=== PATIENT | male | born 1970 | race Caucasian/White ===

== ENCOUNTER 2021-06-28 06:13 | Outpatient (REF) | payer OTHER, SELFPAY ==
[2021-06-28 11:23] LABS: MANUAL DIFF FLAG NO
[2021-06-28 11:35] LABS: Basophils Absolute Auto 0.1 X10*3/uL (0.0-0.2); Basophils Percent Auto 1.1 % (0-2); Eosinophils Absolute Auto 0.1 X10*3/uL (0.0-0.4); Eosinophils Percent Auto 1.6 % (0-4); Hematocrit 45.3 % (42.0-52.0); Hemoglobin 15.1 g/dl (14.0-18.0); Imm Gran Abs Auto 0.02 X10*3/uL (0.00-0.03); Imm Gran Pct Auto 0.3 % (0.0-0.4); Lymphocytes Absolute Auto 1.7 X10*3/uL (1.2-4.9); Lymphocytes Percent Auto 26.5 % (20-40); Mean Corpuscular HGB Conc 33.3 g/dl (31.0-36.0); Mean Corpuscular Hemoglobin 28.7 pg (27.0-33.0); Monocytes Absolute Auto 0.8 X10*3/uL (0.1-1.2); Monocytes Percent Auto 12.1 % (2-11); Neutrophils Absolute Auto 3.7 x10*3/uL (2.0-8.3); Neutrophils Percent Auto 58.4 % (45-73); Platelet Count 254 X10*3/uL (160-400); Red Blood Count 5.27 X10*6/uL (4.60-5.80); Red Cell Distribution Width 12.3 % (11.0-16.0); White Blood Count 6.3 X10*3/uL (4.8-10.8)
[2021-06-28 11:48] LABS: Appearance Urine CLEAR; Color Urine YELLOW; Glucose Urine UA NEG (NEG); Leukocyte Esterase Urine NEG (NEG); Nitrite Urine NEG (NEG); Urine Blood NEG (NEG); Urine Ketones NEG (NEG); Urine Protein NEG (NEG-TRACE)
[2021-06-28 12:00] LABS: Alanine Aminotransferase 15 U/L (0-40); Albumin Level 4.5 g/dL (3.5-5.0); Alkaline Phosphatase 72 U/L (39-117); Anion Gap 14 (12-20); Aspartate Amino Transferase 13 U/L (5-37); Blood Urea Nitrogen 18 mg/dL (9-16); Calcium 9.1 mg/dL (8.4-10.2); Carbon Dioxide 25 mmol/L (22-29); Chloride 105 mmol/L (96-108); Cholesterol 193 mg/dL; Estimated Glomerular Filt Rate > 60; Glucose Fasting 83 mg/dL (60-99); HDL Cholesterol 39 mg/dL; LDL Cholesterol Calculated 139 mg/dl; Potassium 3.9 mmol/L (3.3-5.1); Sodium 140 mmol/L (135-145); Total Protein 6.7 g/dL (6.5-8.0); Triglycerides 77 mg/dL
[2021-06-28 12:22] LABS: Prostate Specific Antigen Scr 0.62 ng/mL (<0.05-4.0); TSH reflex Free T4 1.41 uIU/mL (0.32-4.0); Vitamin D 25-OH Total 13.9 ng/mL (>30)
== END 2021-06-28 06:14 | disposition home or self-care (01) ==
LOC: HO.HMGCLDS 06:13
PROVIDERS: PCP Internal Medicine; Visit Provider Internal Medicine
DX: Z00.00 Encounter for general adult medical examination without abnormal findings (principal); Z12.5 Encounter for screening for malignant neoplasm of prostate; E78.00 Pure hypercholesterolemia, unspecified; E55.9 Vitamin D deficiency, unspecified
CPT/HCPCS: 36415; 80053; 80061; 81003; 82306; 84153; 84443; 85025

== ENCOUNTER 2022-08-05 11:20 | Outpatient (REF) | payer OTHER, SELFPAY ==
[2022-08-05 13:59] LABS: Appearance Urine Clear; Color Urine Yellow; Glucose Urine UA Negative (Negative); Leukocyte Esterase Urine Negative (Negative); Nitrite Urine Negative (Negative); PH 5.5 (5.0-9.0); Urine Blood Negative (Negative); Urine Ketones Negative (Negative); Urine Protein Negative (Neg-Trace)
[2022-08-05 14:09] LABS: MANUAL DIFF FLAG NO
[2022-08-05 14:17] LABS: Basophils Absolute Auto 0.1 X10*3/uL (0.0-0.2); Eosinophils Percent Auto 0.3 % (0-4); Hematocrit 46.8 % (42.0-52.0); Hemoglobin 15.8 g/dl (14.0-18.0); Imm Gran Abs Auto 0.04 X10*3/uL (0.00-0.03); Imm Gran Pct Auto 0.5 % (0.0-0.4); Lymphocytes Absolute Auto 1.5 X10*3/uL (1.2-4.9); Lymphocytes Percent Auto 17.3 % (20-40); Mean Corpuscular HGB Conc 33.8 g/dl (31.0-36.0); Mean Corpuscular Hemoglobin 28.8 pg (27.0-33.0); Mean Corpuscular Volume 85.2 fL (80.0-98.0); Mean Platelet Volume 9.8 fL (9.4-12.4); Monocytes Absolute Auto 0.6 X10*3/uL (0.1-1.2); Monocytes Percent Auto 7.3 % (2-11); Neutrophils Absolute Auto 6.5 x10*3/uL (2.0-8.3); Neutrophils Percent Auto 73.6 % (45-73); Platelet Count 284 X10*3/uL (160-400); Red Blood Count 5.49 X10*6/uL (4.60-5.80); Red Cell Distribution Width 12.6 % (11.0-16.0); White Blood Count 8.8 X10*3/uL (4.8-10.8)
[2022-08-05 16:21] LABS: Alanine Aminotransferase 13 U/L (0-40); Albumin Level 4.6 g/dL (3.5-5.0); Alkaline Phosphatase 74 U/L (39-117); Anion Gap 15 (12-20); Aspartate Amino Transferase 12 U/L (5-37); Bilirubin Total 1.1 mg/dL (0.0-1.0); Blood Urea Nitrogen 15 mg/dL (9-16); Calcium 9.8 mg/dL (8.4-10.2); Carbon Dioxide 27 mmol/L (22-29); Chloride 104 mmol/L (96-108); Cholesterol 206 mg/dL; Estimated Glomerular Filt Rate > 60; Glucose Fasting 113 mg/dL (60-99); HDL Cholesterol 36 mg/dL; LDL Cholesterol Calculated 152 mg/dl; Potassium 4.5 mmol/L (3.3-5.1); Prostate Specific Antigen Scr 0.99 ng/mL (<0.05-4.0); Sodium 141 mmol/L (135-145); TSH reflex Free T4 0.73 uIU/mL (0.32-4.0); Total Protein 6.7 g/dL (6.5-8.0); Triglycerides 90 mg/dL; Vitamin D 25-OH Total 14.2 ng/mL (>30)
== END 2022-08-05 11:21 | disposition home or self-care (01) ==
LOC: HO.HMGCLDS 11:20
PROVIDERS: PCP Internal Medicine; Visit Provider Internal Medicine
DX: Z00.00 Encounter for general adult medical examination without abnormal findings (principal); Z12.5 Encounter for screening for malignant neoplasm of prostate; E78.00 Pure hypercholesterolemia, unspecified; E55.9 Vitamin D deficiency, unspecified; R30.0 Dysuria
CPT/HCPCS: 36415; 80053; 80061; 81003; 82306; 84153; 84443; 85025

== ENCOUNTER 2023-06-15 17:23 | Outpatient (AMB) | payer OTHER, SELFPAY ==
--- NOTE | 2023-06-15 17:25 | MHC.PC.OV ---
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: No Accompanied by: Self / Same As Patient Allergies penicillin G [Penicillin G] Allergy (Mild, Verified 06/15/23 17:42) ANAPHYLAXIS penicillin V Allergy (Unknown, Verified 06/15/23 17:42) anaphylaxis Medication List - Last Reconciled 06/15/23 by Dario Shaikh MD No Known Home Meds Tobacco use date assessed: 06/15/23 Dental Screening Dental Screen Date: 06/15/23 Did you have a dental visit in the last 12 months?: Yes Did you have a dental problem in the last 6 months where you did not have access to dental care?: No Was dental information given to patient?: Patient has dentist HPI PE HPI Details Patient comes in today for his annual physical examination States that he feels okay He denies any headaches or dizziness Denies any chest pains, no SOB No nausea/vomiting, no abdominal pain No change in bowel habits noted Denies any acute urinary symptoms Would like to know how he did on his labs done back in July 2022 after his last physical exam He is not yet due for his repeat colonoscopy - due in 2028 [facility] [place] Medical History (Updated 06/15/23 @ 19:28 by Dario Shaikh MD) Vitamin D deficiency Pure hypercholesterolemia Surgical History H/O colonoscopy (~01/12/19) History of hernia surgery Hx of adenoidectomy History of appendectomy Hx of tonsillectomy H/O right knee surgery Family History Father No problems noted. Mother Lyme disease Social History Housing: House Alcohol intake: current Alcohol intake frequency: holidays/special occasions only Patient Tobacco Use Status: Never used Tobacco e-Cigarette/Vaping Use: Never Used Second Hand Smoke Exposure: No service: No Current occupational status: employed Cognitive needs: No Hearing needs: No Vision needs: Yes Questionnaire PHQ-9 Over the last 2 weeks, how often have you been bothered by any of the following problems? 1. Little interest or pleasure in doing things: not at all 2. Feeling down, depressed, or hopeless: not at all 3. Trouble falling or staying asleep, or sleeping too much: not at all 4. Feeling tired or having little energy: not at all 5. Poor appetite or overeating: not at all 6. Feeling bad about yourself - or that you are a failure or have let yourself or your family down: not at all 7. Trouble concentrating on things, such as reading the newspaper or watching television: not at all 8. Moving or speaking so slowly that other people could have noticed. Or the opposite - being so fidgety or restless that you have been moving around a lot more than usual: not at all 9. Thoughts that you would be better off or of hurting yourself in some way: not at all Total score: 0 Depression Screening Interpretation: Negative Depression Screening Done: Yes 13997 - PHQ-9 Billing: Yes Source: Developed by Drs. Jose Maunel Quintanilla, Marcy Iverson, Winston Vergara and colleagues, with an educational isma from [employer]. Thrive Questionnaire Date Thrive assessed: 06/15/23 I am a: Patient What is your living situation today?: I have a steady place to live Within the past 12 months, did the food you bought not last and you didn't have the money to get more?: Never true Within the past 12 months, did you worry whether your food would run out before you got money to buy more?: Never true Do you have trouble paying for medicines?: No Do you have trouble getting transportation to medical appointments?: No Do you have trouble paying your heating and electricity bill?: No Do you have trouble taking care of your child, family member or friend?: No Do you have trouble with day-to-day activities such as bathing, preparing meals, shopping, managing finances, etc.?: No Are you currently unemployed and looking for a job?: No Are you interested in more education?: No Please select the resources that you would like help with: None Currently or been in a relationship where the following occur: no concerns reported AUDIT C Alcohol Use Questionnaire (AUDIT-C) 1. How often do you have a drink containing alcohol?: Monthly or less 2. How many drinks containing alcohol do you have on a typical day when you are drinking?: 1 or 2 3. How often do you have six or more drinks on one occasion?: Never Total Score: 1 Score Reviewed/Action Taken: Yes LUCERO-7 AMB Questionnaire LUCERO-7 Date LUCERO - 7 assessed: 06/15/23 Feeling nervous, anxious, or on edge: 0 = Not at all Not being able to stop or control worryin = Not at all Worrying too much about different things: 0 = Not at all Trouble relaxin = Not at all Being so restless that it is hard to sit still: 0 = Not at all Becoming easily annoyed or irritable: 0 = Not at all Feeling afraid as if something awful might happen: 0 = Not at all Total LUCERO-7 score (0-4 normal; 5-9 mild; 10-14 moderate; 15-21 severe): 0 Source: Developed by Drs. Jose Manuel Quintanilla, Marcy Iverson, Winston Vergara and colleagues, with an educational isma from [employer]. Review of Systems Const Denies chills, Denies fatigue, Denies fever(s), Denies headache(s), Denies malaise and Denies weakness Eyes Denies blurry vision, Denies change in vision, Denies irritation and Denies itchy eyes ENT Denies dysphagia, Denies dizziness, Denies otalgia, Denies headache(s), Denies nasal congestion, Denies neck pain, Denies odynophagia and Denies sore throat Card Denies chest pain, Denies rapid heart rate, Denies irregular heart rhythm, Denies palpitations and Denies dyspnea Resp Denies chest congestion, Denies cough, Denies dyspnea and Denies wheezing GI Denies abdominal pain, Denies bloating, Denies constipation, Denies dysphagia, Denies heartburn, Denies diarrhea, Denies nausea, Denies odynophagia and Denies vomiting Denies hematuria, Denies difficulty urinating, Denies dysuria, Denies urinary frequency and Denies urinary urgency Musc Denies back pain, Denies arthralgias, Denies joint swelling, Denies muscle weakness and Denies neck pain Skin/Breast Denies change in pigmentation, Denies lesions, Denies rash and Denies unusual bruising Neuro Denies dizziness, Denies headache(s), Denies paresthesias and Denies weakness Endo Denies fatigue and Denies palpitations Aller/Immun Denies itchy eyes and Denies wheezing Physical exam (Primary Care) Vital Signs: Last Vital Signs Pulse 60 06/15/23 17:26 BP 120/76 06/15/23 17:26 Pulse Ox 98 06/15/23 17:26 Oxygen Delivery Method Room Air 06/15/23 17:26 BMI result Body Mass Index 22.9 Tobacco/Smoking Status: Tobacco use Status Tobacco use date assessed 06/15/23 06/15/23 17:30 Patient Tobacco Use Status Never used Tobacco 06/15/23 17:30 e-Cigarette/Vaping Use Never Used 06/15/23 17:30 PHQ-9: PHQ-9 Score PHQ-9: Total score 0 06/15/23 17:43 Depression Screening Interpretation: Negative Thrive Assessment: Date of Thrive Assessment Date Thrive assessed 06/15/23 06/15/23 17:30 Currently or been in a relationship where the following occur: no concerns reported Const General: no acute distress, alert and awake Orientation/consciousness: patient oriented x3 HENMT Head: Yes normocephalic and Yes atraumatic Ears: external ears normal, TM's normal bilaterally and EAC's normal General nose exam: No nasal discharge present Face and sinus: Yes normal facial exam and Yes sinuses nontender Teeth and gingiva: dentition normal Throat: Yes posterior oropharynx normal and Yes tonsils normal (no TP congestion) Eyes Eyelids: Yes eyelids normal Conjunctivae: conjunctivae normal Pupils: Equal, round and reactive pupils present EOM: EOMs intact bilaterally Neck Neck: Yes no lymphadenopathy and Yes supple Thyroid: Thyroid normal Resp Auscultation: clear to auscultation bilaterally, no rales and no wheezes Cardio Rate: regular rate Rhythm: regular rhythm Heart sounds: no murmurs GI Palpation (GI): Soft to palpation, nontender and No hepatosplenomegaly present Auscultation: normal bowel sounds General: Yes no CVA tenderness Back/Spine/Pelvis Back: no CVA tenderness Thoracic/Lumbar Spine: thoracic and lumbar spine normal to inspection Skin Lesions: no lesions Rashes: no rashes Neuro General: patient oriented x3, moves all extremities, no focal motor deficits and CN's II-XI intact bilaterally Cranial nerves: Yes Equal, round and reactive pupils present Cognition (Neuro): normal cognition Gait exam (Neuro): Normal gait present Extrem General: Yes no clubbing, cyanosis or edema Results Reviewed Results Reviewed: Laboratory Tests 06/28/21 08/05/22 08/05/22 06:20 11:30 11:30 Triglycerides 77 Cholesterol 193 206 LDL Cholesterol, Calc 139 152 HDL Cholesterol 39 36 25-OH Vitamin D Total 14.2 Laboratory Tests 06/28/21 08/05/22 06:20 11:30 Fasting Glucose 113 H Triglycerides 77 Laboratory Tests 08/05/22 11:30 Triglycerides 90 Assessment and Plan Assessment & Plan (1) Annual physical exam: Code(s): Z00.00 - Encounter for general adult medical examination without abnormal findings Plan: Check labs He is up-to-date on his colon cancer screening - is not due for repeat colonoscopy until 2028 (2) Pure hypercholesterolemia: Code(s): E78.00 - Pure hypercholesterolemia, unspecified Plan: He is advised that his cholesterol levels have increased slightly from previous when last checked in July 2022 Reinforced low cholesterol diet Will recheck his fasting lipids for follow up (3) Vitamin D deficiency: Code(s): E55.9 - Vitamin D deficiency, unspecified Plan: He is advised that his Vitamin D level was very low when checked last July 2022 and he should be taking supplements to bring this up Recommend that he take Vitamin D3 2000 units (50 mcg) daily - can get OTC as insurance usually do not cover this (4) Impaired fasting glucose: Code(s): R73.01 - Impaired fasting glucose Plan: He is also advised/cautioned that his fasting glucose level last July 2022 was the highest I have seen over the past several years Is cautioned to watch his sugar and carb intake Will recheck his FBS; will also check his HgbA1c for further evaluation Plan To return in 1 year for his next annual physical examination Orders: Orders UA CC w/rflx Micro + Cult Today R30.0 - Dysuria, Z00.00 - Encounter for general adult medical examination without abnormal findings Vitamin D 25-OH Total Today E55.9 - Vitamin D deficiency, unspecified, Z00.00 - Encounter for general adult medical examination without abnormal findings Complete Blood Count Auto Diff Today Z00.00 - Encounter for general adult medical examination without abnormal findings Comprehensive [place]. Panel Fast Today E78.00 - Pure hypercholesterolemia, unspecified, Z00.00 - Encounter for general adult medical examination without abnormal findings Lipid Panel Today E78.00 - Pure hypercholesterolemia, unspecified, Z00.00 - Encounter for general adult medical examination without abnormal findings TSH reflex Free T4 Today E78.00 - Pure hypercholesterolemia, unspecified, Z00.00 - Encounter for general adult medical examination without abnormal findings Prostate Specific Antigen Scr Today Z00.00 - Encounter for general adult medical examination without abnormal findings Hemoglobin A1c Today R73.9 - Hyperglycemia, unspecified, Z00.00 - Encounter for general adult medical examination without abnormal findings Coding Level of Care Code Est Pt Prev Care 40-64y(01573) Diagnoses Annual physical exam Z00.00 Pure hypercholesterolemia E78.00 Vitamin D deficiency E55.9 Impaired fasting glucose R73.01
[2023-06-15 17:26] VITALS: BP 120/76; PULSE 60; O2SAT 98; BMI 22.9
== END 2023-06-15 17:52 | disposition home or self-care (01) ==
LOC: HO.HMGH 17:23
PROVIDERS: PCP Internal Medicine; Visit Provider Internal Medicine
DX: Z00.00 Encounter for general adult medical examination without abnormal findings (principal); E78.00 Pure hypercholesterolemia, unspecified; E55.9 Vitamin D deficiency, unspecified; R73.01 Impaired fasting glucose
CPT/HCPCS: 99396

== ENCOUNTER 2023-08-05 06:56 | Outpatient (REF) | payer OTHER, SELFPAY ==
[2023-08-05 11:26] LABS: Appearance Urine Clear; Color Urine Yellow; Glucose Urine UA Negative (Negative); Leukocyte Esterase Urine Negative (Negative); Nitrite Urine Negative (Negative); PH 5.5 (5.0-9.0); Urine Blood Negative (Negative); Urine Ketones 15 mg/dL (Negative); Urine Protein Negative (Neg-Trace)
[2023-08-05 11:28] LABS: MANUAL DIFF FLAG NO
[2023-08-05 11:36] LABS: Basophils Absolute Auto 0.1 X10*3/uL (0.0-0.2); Basophils Percent Auto 1.2 % (0-2); Eosinophils Absolute Auto 0.1 X10*3/uL (0.0-0.4); Eosinophils Percent Auto 1.1 % (0-4); Hematocrit 46.8 % (42.0-52.0); Hemoglobin 15.8 g/dl (14.0-18.0); Imm Gran Abs Auto 0.02 X10*3/uL (0.00-0.03); Imm Gran Pct Auto 0.3 % (0.0-0.4); Lymphocytes Absolute Auto 1.1 X10*3/uL (1.2-4.9); Lymphocytes Percent Auto 16.7 % (20-40); Mean Corpuscular HGB Conc 33.8 g/dl (31.0-36.0); Mean Corpuscular Hemoglobin 29.3 pg (27.0-33.0); Mean Corpuscular Volume 86.7 fL (80.0-98.0); Monocytes Absolute Auto 0.6 X10*3/uL (0.1-1.2); Monocytes Percent Auto 8.7 % (2-11); Neutrophils Absolute Auto 4.8 x10*3/uL (2.0-8.3); Platelet Count 241 X10*3/uL (160-400); Red Cell Distribution Width 12.5 % (11.0-16.0); White Blood Count 6.6 X10*3/uL (4.8-10.8)
[2023-08-05 11:54] LABS: Estimated Average Glucose 105 mg/dL; Hemoglobin A1c % 5.3 % (<6.0)
[2023-08-05 12:22] LABS: Prostate Specific Antigen Scr 0.92 ng/mL (<0.05-4.0)
[2023-08-05 14:56] LABS: Alanine Aminotransferase 14 U/L (0-40); Albumin Level 4.5 g/dL (3.5-5.0); Alkaline Phosphatase 66 U/L (39-117); Anion Gap 14 (12-20); Aspartate Amino Transferase 15 U/L (5-37); Bilirubin Total 1.7 mg/dL (0.0-1.0); Blood Urea Nitrogen 15 mg/dL (9-16); Calcium 9.4 mg/dL (8.4-10.2); Carbon Dioxide 24 mmol/L (22-29); Chloride 103 mmol/L (96-108); Cholesterol 195 mg/dL (<200); Estimated Glomerular Filt Rate > 60; Glucose Fasting 70 mg/dL (60-99); HDL Cholesterol 47 mg/dL (>40); LDL Cholesterol Calculated 137 mg/dL (<100); Potassium 4.4 mmol/L (3.3-5.1); Sodium 137 mmol/L (135-145); Total Protein 6.8 g/dL (6.5-8.0); Triglycerides 56 mg/dL (<150)
[2023-08-05 15:13] LABS: TSH reflex Free T4 0.93 uIU/mL (0.32-4.0); Vitamin D 25-OH Total 32.4 ng/mL (>30)
== END 2023-08-05 06:57 | disposition home or self-care (01) ==
LOC: HO.HMGCLDS 06:56
PROVIDERS: PCP Internal Medicine; Visit Provider Internal Medicine
DX: Z00.00 Encounter for general adult medical examination without abnormal findings (principal); Z12.5 Encounter for screening for malignant neoplasm of prostate; E78.00 Pure hypercholesterolemia, unspecified; R30.0 Dysuria; E55.9 Vitamin D deficiency, unspecified; R73.9 Hyperglycemia, unspecified
CPT/HCPCS: 36415; 80053; 80061; 81003; 82306; 83036; 84153; 84443; 85025

== ENCOUNTER 2024-06-17 16:13 | Outpatient (AMB) | payer OTHER, SELFPAY ==
[2024-06-17 16:17] VITALS: BP 132/80; PULSE 65; O2SAT 95; BMI 22.5
--- NOTE | 2024-06-17 16:17 | A.OFFPC_ITS ---
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 Accompanied by: Self / Same As Patient Allergies penicillin G [Penicillin G] Allergy (Mild, Verified 06/17/24 16:53) ANAPHYLAXIS penicillin V Allergy (Unknown, Verified 06/17/24 16:53) anaphylaxis Medication List - Last Reconciled 06/17/24 by Dario Shaikh MD No Known Home Meds Tobacco use date assessed: 06/17/24 Dental Screening Dental Screen Date: 06/17/24 Did you have a dental visit in the last 12 months?: Yes Did you have a dental problem in the last 6 months where you did not have access to dental care?: No Was dental information given to patient?: Patient has dentist HPI pe HPI Details Patient comes in today for his annual physical examination States that he feels okay He denies any headaches or dizziness Denies any chest pains, no shortness of breath No nausea/vomiting, no abdominal pain No change in bowel habits noted He denies any acute urinary symptoms He is up-to-date with his colon cancer screening - he will be due for repeat colonoscopy in 2028 [facility] Medical History Vitamin D deficiency Pure hypercholesterolemia Surgical History H/O colonoscopy (~01/12/19) History of hernia surgery Hx of adenoidectomy History of appendectomy Hx of tonsillectomy H/O right knee surgery Family History Father No problems noted. Mother Lyme disease Social History Housing: House Alcohol intake: current Alcohol intake frequency: holidays/special occasions only Patient Tobacco Use Status: Never used Tobacco Tobacco use type: Cigarette e-Cigarette/Vaping Use: Never Used Second Hand Smoke Exposure: No service: No Current occupational status: employed Cognitive needs: No Hearing needs: No Vision needs: Yes Questionnaire PHQ-9 Over the last 2 weeks, how often have you been bothered by any of the following problems? 1. Little interest or pleasure in doing things: not at all 2. Feeling down, depressed, or hopeless: not at all 3. Trouble falling or staying asleep, or sleeping too much: not at all 4. Feeling tired or having little energy: not at all 5. Poor appetite or overeating: not at all 6. Feeling bad about yourself - or that you are a failure or have let yourself or your family down: not at all 7. Trouble concentrating on things, such as reading the newspaper or watching television: not at all 8. Moving or speaking so slowly that other people could have noticed. Or the opposite - being so fidgety or restless that you have been moving around a lot more than usual: not at all 9. Thoughts that you would be better off or of hurting yourself in some way: not at all Total score: 0 Depression Screening Interpretation: Negative Depression Screening Done: Yes 56089 - PHQ-9 Billing: Yes Source: Developed by Drs. Jose Manuel Quintanilla, Marcy Iverson, Winston Vergara and colleagues, with an educational isma from [employer]. Thrive Questionnaire Date Thrive assessed: 06/17/24 I am a: Patient What is your living situation today?: I choose not to answer this question Within the past 12 months, did the food you bought not last and you didn't have the money to get more?: I choose not to answer this question Within the past 12 months, did you worry whether your food would run out before you got money to buy more?: I choose not to answer this question Do you have trouble paying for medicines?: I choose not to answer this question Do you have trouble getting transportation to medical appointments?: I choose not to answer this question Do you have trouble paying your heating and electricity bill?: I choose not to answer this question Do you have trouble taking care of your child, family member or friend?: I choose not to answer this question Do you have trouble with day-to-day activities such as bathing, preparing meals, shopping, managing finances, etc.?: I choose not to answer this question Are you currently unemployed and looking for a job?: I choose not to answer this question Are you interested in more education?: I choose not to answer this question Please select the resources that you would like help with: None Currently or been in a relationship where the following occur: No concerns reported THRIVE Score: 0 AUDIT C Alcohol Use Questionnaire (AUDIT-C) 1. How often do you have a drink containing alcohol?: Monthly or less 2. How many drinks containing alcohol do you have on a typical day when you are drinking?: 1 or 2 3. How often do you have six or more drinks on one occasion?: Less than monthly Total Score: 2 Score Reviewed/Action Taken: Yes LUCERO-7 AMB Questionnaire LUCERO-7 Date LUCERO - 7 assessed: 06/17/24 Feeling nervous, anxious, or on edge: 0 = Not at all Not being able to stop or control worryin = Not at all Worrying too much about different things: 0 = Not at all Trouble relaxin = Not at all Being so restless that it is hard to sit still: 0 = Not at all Becoming easily annoyed or irritable: 0 = Not at all Feeling afraid as if something awful might happen: 0 = Not at all Total LUCERO-7 score (0-4 normal; 5-9 mild; 10-14 moderate; 15-21 severe): 0 Source: Developed by Drs. Jose Manuel Quintanilla, Marcy Iverson, Winston Vergara and colleagues, with an educational isma from [employer]. LUCERO-7 Assessment Billing LUCERO-7 Assessment Tool: LUCERO-7 Assessment 80080 Review of Systems Const Denies chills, Denies fatigue, Denies fever(s), Denies headache(s), Denies malaise and Denies weakness Eyes Denies blurry vision, Denies change in vision, Denies irritation and Denies itchy eyes ENT Denies dysphagia, Denies dizziness, Denies otalgia, Denies headache(s), Denies nasal congestion, Denies neck pain, Denies odynophagia and Denies sore throat Card Denies chest pain, Denies rapid heart rate, Denies irregular heart rhythm, Denies palpitations and Denies dyspnea Resp Denies chest congestion, Denies cough, Denies dyspnea and Denies wheezing GI Denies abdominal pain, Denies bloating, Denies constipation, Denies dysphagia, Denies heartburn, Denies diarrhea, Denies nausea, Denies odynophagia and Denies vomiting Denies hematuria, Denies difficulty urinating, Denies dysuria, Denies urinary frequency and Denies urinary urgency Musc Denies back pain, Denies arthralgias, Denies joint swelling, Denies muscle weakness and Denies neck pain Skin/Breast Denies change in pigmentation, Denies lesions, Denies rash and Denies unusual bruising Neuro Denies dizziness, Denies headache(s), Denies paresthesias and Denies weakness Endo Denies fatigue and Denies palpitations Aller/Immun Denies itchy eyes and Denies wheezing Physical exam (Primary Care) Vital Signs: Last Vital Signs Pulse 65 06/17/24 16:17 BP 132/80 06/17/24 16:17 Pulse Ox 95 06/17/24 16:17 Oxygen Delivery Method Room Air 06/17/24 16:17 BMI result Body Mass Index 22.5 Tobacco/Smoking Status: Tobacco use Status Tobacco use date assessed 06/17/24 06/17/24 16:19 Patient Tobacco Use Status Never used Tobacco 06/17/24 16:19 Tobacco use type Cigarette 06/17/24 16:19 e-Cigarette/Vaping Use Never Used 06/17/24 16:19 PHQ-9: PHQ-9 Score PHQ-9: Total score 0 06/17/24 16:57 Depression Screening Interpretation: Negative Thrive Assessment: Date of Thrive Assessment Date Thrive assessed 06/17/24 06/17/24 16:19 Currently or been in a relationship where the following occur: No concerns reported Const General: no acute distress, alert and awake Orientation/consciousness: patient oriented x3 HENMT Head: Yes normocephalic and Yes atraumatic Ears: external ears normal, TM's normal bilaterally and EAC's normal General nose exam: No nasal discharge present Face and sinus: Yes normal facial exam and Yes sinuses nontender Teeth and gingiva: dentition normal Throat: Yes posterior oropharynx normal and Yes tonsils normal (no TP congestion) Eyes Eyelids: Yes eyelids normal Conjunctivae: conjunctivae normal Pupils: Equal, round and reactive pupils present EOM: EOMs intact bilaterally Neck Neck: Yes no lymphadenopathy and Yes supple Thyroid: Thyroid normal Resp Auscultation: clear to auscultation bilaterally, no rales and no wheezes Cardio Rate: regular rate Rhythm: regular rhythm Heart sounds: no murmurs GI Palpation (GI): Soft to palpation, nontender and No hepatosplenomegaly present Auscultation: normal bowel sounds General: Yes no CVA tenderness Back/Spine/Pelvis Back: no CVA tenderness Thoracic/Lumbar Spine: thoracic and lumbar spine normal to inspection Skin Lesions: no lesions Rashes: no rashes Neuro General: patient oriented x3, moves all extremities, no focal motor deficits and CN's II-XI intact bilaterally Cranial nerves: Yes Equal, round and reactive pupils present Cognition (Neuro): normal cognition Gait exam (Neuro): Normal gait present Extrem General: Yes no clubbing, cyanosis or edema Results Reviewed Results Reviewed: Laboratory Tests 08/05/23 08/05/23 07:00 07:08 WBC 6.6 Hgb 15.8 Hct 46.8 Plt Count 241 Sodium 137 Potassium 4.4 Creatinine 0.97 Estimated GFR > 60 Fasting Glucose 70 Hemoglobin A1c % 5.3 Calcium 9.4 Total Bilirubin 1.7 H AST 15 ALT 14 Triglycerides 56 Cholesterol 195 LDL Cholesterol, Calc 137 H HDL Cholesterol 47 PSA Screen 0.92 25-OH Vitamin D Total 32.4 TSH 0.93 Ur Specific [place] 1.010 Urine Protein Negative Urine Glucose (UA) Negative Urine Blood Negative Urine Nitrite Negative Ur Leukocyte Esterase Negative Coding Level of Care Code Est Pt Prev Care 40-64y(91122) Diagnoses Annual physical exam Z00.00 Pure hypercholesterolemia E78.00 Impaired fasting glucose R73.01 Elevated bilirubin R17 Vitamin D deficiency E55.9 Additional Codes LUCERO-7 Assessment Billing - LUCERO-7 Assessment Tool: LUCERO-7 Assessment 24708 ([id number]) Assessment & Plan Assessment & Plan (1) Annual physical exam: Code(s): Z00.00 - Encounter for general adult medical examination without abnormal findings Category: Medical Plan: Check labs He is up-to-date with his colon cancer screening - he will be due for repeat colonoscopy in 2028 (2) Pure hypercholesterolemia: Code(s): E78.00 - Pure hypercholesterolemia, unspecified Category: Medical Plan: Patient is advised that his LDL cholesterol level was still elevated on his most recent labs done back in July 2023 at 137 mg/dL although it has improved slightly from the year before Reinforced low-cholesterol diet Will recheck his fasting lipids for follow-up (3) Impaired fasting glucose: Code(s): R73.01 - Impaired fasting glucose Category: Medical Plan: Improved - his FBS was normal on his labs back in July 2023 HgbA1c was also normal at 5.3% when previously checked Reinforced low calorie/low carb diet (4) Elevated bilirubin: Code(s): R17 - Unspecified jaundice Category: Medical Plan: His total bilirubin level was elevated on his labs done back in July 2023 Patient is currently asymptomatic with no complaints of any acute GI symptoms Will recheck his LFTs for follow up - if his serum bilirubin level remains elevated, will consider sending him for abdominal US for further evaluation (5) Vitamin D deficiency: Code(s): E55.9 - Vitamin D deficiency, unspecified Category: Medical Plan: Corrected - his Vitamin D level was normal when most recently checked back in July 2023 Continue OTC Vitamin D supplements daily Plan To return in 1 year for his next annual physical examination Orders: Orders Complete Blood Count Auto Diff 06/17/24 D64.9 - Anemia, unspecified, Z00.00 - Encounter for general adult medical examination without abnormal findings TSH reflex Free T4 06/17/24 E78.00 - Pure hypercholesterolemia, unspecified, Z00.00 - Encounter for general adult medical examination without abnormal findings Hemoglobin A1c 06/17/24 E11.9 - Type 2 diabetes mellitus without complications, Z00.00 - Encounter for general adult medical examination without abnormal findings Prostate Specific Antigen 06/17/24 N40.0 - Benign prostatic hyperplasia without lower urinary tract symptoms, Z00.00 - Encounter for general adult medical examination without abnormal findings Comprehensive [place]. Panel Fast 06/17/24 E78.00 - Pure hypercholesterolemia, unspecified, Z00.00 - Encounter for general adult medical examination without abnormal findings Lipid Panel 06/17/24 E78.00 - Pure hypercholesterolemia, unspecified, Z00.00 - Encounter for general adult medical examination without abnormal findings UA CC w/rflx Micro + Cult 06/17/24 R30.0 - Dysuria, Z00.00 - Encounter for general adult medical examination without abnormal findings Vitamin D 25-OH Total 06/17/24 E55.9 - Vitamin D deficiency, unspecified, Z00.00 - Encounter for general adult medical examination without abnormal findings
== END 2024-06-17 17:05 | disposition home or self-care (01) ==
LOC: HO.HMCH 16:14
PROVIDERS: PCP Internal Medicine; Visit Provider Internal Medicine
DX: Z00.00 Encounter for general adult medical examination without abnormal findings (principal); E78.00 Pure hypercholesterolemia, unspecified; R73.01 Impaired fasting glucose; R17 Unspecified jaundice; E55.9 Vitamin D deficiency, unspecified

== ENCOUNTER → 2024-06-17 16:13 | Outpatient (BNVA) | payer OTHER, SELFPAY | PROVIDERS: PCP Internal Medicine; Visit Provider Internal Medicine | DX: Z00.00 Encounter for general adult medical examination without abnormal findings (principal); E78.00 Pure hypercholesterolemia, unspecified; R73.01 Impaired fasting glucose; R17 Unspecified jaundice; E55.9 Vitamin D deficiency, unspecified | CPT/HCPCS: 96127 ==

== ENCOUNTER 2024-06-28 06:03 | Outpatient (REF) | payer OTHER, SELFPAY ==
[2024-06-28 10:11] LABS: MANUAL DIFF FLAG NO
[2024-06-28 10:20] LABS: Appearance Urine Clear; Color Urine Yellow; Glucose Urine UA Negative (Negative); Leukocyte Esterase Urine Negative (Negative); Nitrite Urine Negative (Negative); PH 6.5 (5.0-9.0); Urine Blood Negative (Negative); Urine Ketones Negative (Negative); Urine Protein Negative (Neg-Trace)
[2024-06-28 10:27] LABS: Basophils Absolute Auto 0.1 X10*3/uL (0.0-0.2); Eosinophils Absolute Auto 0.2 X10*3/uL (0.0-0.4); Eosinophils Percent Auto 2.4 % (0-4); Imm Gran Abs Auto 0.03 X10*3/uL (0.00-0.03); Imm Gran Pct Auto 0.4 % (0.0-0.4); Lymphocytes Absolute Auto 1.5 X10*3/uL (1.2-4.9); Lymphocytes Percent Auto 22.7 % (20-40); Mean Corpuscular Hemoglobin 29.3 pg (27.0-33.0); Mean Corpuscular Volume 86.1 fL (80.0-98.0); Mean Platelet Volume 9.6 fL (9.4-12.4); Monocytes Absolute Auto 0.9 X10*3/uL (0.1-1.2); Monocytes Percent Auto 12.9 % (2-11); Neutrophils Absolute Auto 4.1 x10*3/uL (2.0-8.3); Neutrophils Percent Auto 60.6 % (45-73); Platelet Count 256 X10*3/uL (160-400); Red Blood Count 5.46 X10*6/uL (4.60-5.80); Red Cell Distribution Width 12.6 % (11.0-16.0); White Blood Count 6.8 X10*3/uL (4.8-10.8)
[2024-06-28 10:49] LABS: Estimated Average Glucose 105 mg/dL; Hemoglobin A1C 146.1212 umol/L; Hemoglobin A1c % 5.3 % (<6.0); Total Hemoglobin (HGBA1C) 4189.1101 umol/L
[2024-06-28 10:58] LABS: Prostate Specific Antigen 1.17 ng/mL (<0.05-4.0)
[2024-06-28 11:04] LABS: Alanine Aminotransferase 16 U/L (0-40); Albumin Level 4.3 g/dL (3.5-5.0); Alkaline Phosphatase 78 U/L (39-117); Anion Gap 10 (12-20); Aspartate Amino Transferase 22 U/L (5-37); Bilirubin Total 1.6 mg/dL (0.0-1.0); Blood Urea Nitrogen 13 mg/dL (9-16); Calcium 9.2 mg/dL (8.4-10.2); Carbon Dioxide 28 mmol/L (22-29); Chloride 107 mmol/L (96-108); Cholesterol 197 mg/dL (<200); Estimated Glomerular Filt Rate > 60; Glucose Fasting 91 mg/dL (60-99); HDL Cholesterol 45 mg/dL (>40); LDL Cholesterol Calculated 138 mg/dL (<100); Potassium 3.7 mmol/L (3.3-5.1); Sodium 141 mmol/L (135-145); Total Protein 6.8 g/dL (6.5-8.0); Triglycerides 74 mg/dL (<150)
[2024-06-28 11:10] LABS: TSH reflex Free T4 1.49 uIU/mL (0.32-4.0); Vitamin D 25-OH Total 70.1 ng/mL (>30)
== END 2024-06-28 06:04 | disposition home or self-care (01) ==
LOC: HO.HMGCLDS 06:03
PROVIDERS: PCP Internal Medicine; Visit Provider Internal Medicine
DX: Z00.00 Encounter for general adult medical examination without abnormal findings (principal); N40.0 Benign prostatic hyperplasia without lower urinary tract symptoms; E78.00 Pure hypercholesterolemia, unspecified; E55.9 Vitamin D deficiency, unspecified; D64.9 Anemia, unspecified; E11.9 Type 2 diabetes mellitus without complications; R30.0 Dysuria; Z12.5 Encounter for screening for malignant neoplasm of prostate
CPT/HCPCS: 36415; 80053; 80061; 81003; 82306; 83036; 84153; 84443; 85025

== ENCOUNTER 2025-06-26 17:22 | Outpatient (AMB) | payer OTHER, SELFPAY ==
[2025-06-26 17:31] VITALS: BP 114/68; PULSE 61; O2SAT 97; BMI 23.0
--- NOTE | 2025-06-26 17:31 | MHC.PC.OV ---
Vital Signs 06/26/25 17:31 Height 5 ft 11 in Weight 165 lb BMI 23.0 BP 114/68 Blood Pressure Location Lt brachial Position Sitting Pulse 61 Pulse Source Pulse Oximeter Pulse Oximetry (%) 97 Oxygen Delivery Method Room Air Intake Visit Reasons: PHYSICAL Allergies penicillin G (Penicillin G) Allergy (Mild, Verified 06/26/25 17:39) ANAPHYLAXIS penicillin V Allergy (Unknown, Verified 06/26/25 17:39) anaphylaxis Medication List - Last Reconciled 06/26/25 by Dario Shaikh MD No Known Home Meds Tobacco use date assessed: 06/26/25 Dental Screening Dental Screen Date: 06/26/25 Did you have a dental visit in the last 12 months?: Yes Did you have a dental problem in the last 6 months where you did not have access to dental care?: No Was dental information given to patient?: Patient has dentist HPI PHYSICAL HPI Details Patient comes in today for his annual physical examination States that he feels well He denies any headaches or dizziness Denies any chest pains, no shortness of breath No nausea/vomiting, no abdominal pain No change in bowel habits noted He denies any acute urinary symptoms He is up-to-date with his colon cancer screening - he will be due for repeat colonoscopy in 2028 [facility] Medical History Vitamin D deficiency Pure hypercholesterolemia Surgical History (Updated 06/26/25 @ 17:40 by Dario Shaikh MD) H/O colonoscopy (~01/12/19) History of hernia surgery Hx of adenoidectomy History of appendectomy Hx of tonsillectomy H/O right knee surgery Family History Father No problems noted. Mother Lyme disease Social History Housing: House Alcohol intake: current Alcohol intake frequency: holidays/special occasions only Patient Tobacco Use Status: Never used Tobacco Tobacco use type: Cigarette e-Cigarette/Vaping Use: Never Used Second Hand Smoke Exposure: No service: No Current occupational status: employed Cognitive needs: No Hearing needs: No Vision needs: Yes Questionnaire PHQ-9 Over the last 2 weeks, how often have you been bothered by any of the following problems? 1. Little interest or pleasure in doing things: not at all 2. Feeling down, depressed, or hopeless: not at all 3. Trouble falling or staying asleep, or sleeping too much: not at all 4. Feeling tired or having little energy: not at all 5. Poor appetite or overeating: not at all 6. Feeling bad about yourself - or that you are a failure or have let yourself or your family down: not at all 7. Trouble concentrating on things, such as reading the newspaper or watching television: not at all 8. Moving or speaking so slowly that other people could have noticed. Or the opposite - being so fidgety or restless that you have been moving around a lot more than usual: not at all 9. Thoughts that you would be better off or of hurting yourself in some way: not at all Total score: 0 Depression Screening Interpretation: Negative Depression Screening Done: Yes 96126 - PHQ-9 Billing: Yes Source: Developed by Drs. Jose Manuel Quintanilla, Marcy Iverson, Winston Vergara and colleagues, with an educational isma from [employer]. Thrive Questionnaire Date Thrive assessed: 06/19/25 I am a: Patient What is your living situation today?: I have a steady place to live Within the past 12 months, did the food you bought not last and you didn't have the money to get more?: Never true Within the past 12 months, did you worry whether your food would run out before you got money to buy more?: Never true Do you have trouble paying for medicines?: No Do you have trouble getting transportation to medical appointments?: No Do you have trouble paying your heating and electricity bill?: No Do you have trouble taking care of your child, family member or friend?: No Do you have trouble with day-to-day activities such as bathing, preparing meals, shopping, managing finances, etc.?: No Are you currently unemployed and looking for a job?: No Are you interested in more education?: No Please select the resources that you would like help with: None Currently or been in a relationship where the following occur: No concerns reported THRIVE Score: 0 AUDIT C Alcohol Use Questionnaire (AUDIT-C) 2. How many drinks containing alcohol do you have on a typical day when you are drinking?: 1 or 2 Total Score: 0 Score Reviewed/Action Taken: Yes LUCERO-7 AMB Questionnaire LUCERO-7 Date LUCERO - 7 assessed: 06/26/25 Feeling nervous, anxious, or on edge: 0 = Not at all Not being able to stop or control worryin = Not at all Worrying too much about different things: 0 = Not at all Trouble relaxin = Not at all Being so restless that it is hard to sit still: 0 = Not at all Becoming easily annoyed or irritable: 0 = Not at all Feeling afraid as if something awful might happen: 0 = Not at all Total LUCERO-7 score (0-4 normal; 5-9 mild; 10-14 moderate; 15-21 severe): 0 Source: Developed by Drs. Jose Manuel Quintanilla, Marcy Iverson, Winston Vergara and colleagues, with an educational isma from [employer]. Review of Systems Const Denies chills, Denies fatigue, Denies fever(s), Denies headache(s), Denies malaise and Denies weakness Eyes Denies blurry vision, Denies change in vision, Denies irritation and Denies itchy eyes ENT Denies dysphagia, Denies dizziness, Denies otalgia, Denies headache(s), Denies nasal congestion, Denies neck pain, Denies odynophagia and Denies sore throat Card Denies rapid heart rate, Denies irregular heart rhythm, Denies palpitations and Denies dyspnea Resp Denies chest congestion, Denies cough, Denies dyspnea and Denies wheezing GI Denies abdominal pain, Denies bloating, Denies constipation, Denies dysphagia, Denies heartburn, Denies diarrhea, Denies nausea, Denies odynophagia and Denies vomiting Denies hematuria, Denies difficulty urinating, Denies dysuria, Denies urinary frequency and Denies urinary urgency Musc Denies back pain, Denies arthralgias, Denies joint swelling, Denies muscle weakness and Denies neck pain Skin/Breast Denies change in pigmentation, Denies lesions, Denies rash and Denies unusual bruising Neuro Denies dizziness, Denies headache(s), Denies paresthesias and Denies weakness Endo Denies fatigue and Denies palpitations Aller/Immun Denies itchy eyes and Denies wheezing Physical exam (Primary Care) Vital Signs: Last Vital Signs Pulse 61 06/26/25 17:31 BP 114/68 06/26/25 17:31 Pulse Ox 97 06/26/25 17:31 Oxygen Delivery Method Room Air 06/26/25 17:31 BMI result Body Mass Index 23.0 Tobacco/Smoking Status: Tobacco use Status Tobacco use date assessed 06/26/25 06/26/25 17:34 Patient Tobacco Use Status Never used Tobacco 06/26/25 17:34 Tobacco use type Cigarette 06/26/25 17:34 e-Cigarette/Vaping Use Never Used 06/26/25 17:34 PHQ-9: PHQ-9 Score PHQ-9: Total score 0 06/26/25 17:34 Depression Screening Interpretation: Negative Thrive Assessment: Date of Thrive Assessment Date Thrive assessed 06/19/25 06/26/25 17:34 Currently or been in a relationship where the following occur: No concerns reported Const General: no acute distress, alert and awake Orientation/consciousness: patient oriented x3 HENMT Head: Yes normocephalic and Yes atraumatic Ears: external ears normal, TM's normal bilaterally and EAC's normal General nose exam: No nasal discharge present Face and sinus: Yes normal facial exam and Yes sinuses nontender Teeth and gingiva: dentition normal Throat: Yes posterior oropharynx normal and Yes tonsils normal (no TP congestion) Eyes Eyelids: Yes eyelids normal Conjunctivae: conjunctivae normal Pupils: Equal, round and reactive pupils present EOM: EOMs intact bilaterally Neck Neck: Yes no lymphadenopathy and Yes supple Thyroid: Thyroid normal Resp Auscultation: clear to auscultation bilaterally, no rales and no wheezes Cardio Rate: regular rate Rhythm: regular rhythm Heart sounds: no murmurs GI Palpation (GI): Soft to palpation, nontender and No hepatosplenomegaly present Auscultation: normal bowel sounds General: Yes no CVA tenderness Back/Spine/Pelvis Back: no CVA tenderness Thoracic/Lumbar Spine: thoracic and lumbar spine normal to inspection Skin Lesions: no lesions Rashes: no rashes Neuro General: patient oriented x3, moves all extremities, no focal motor deficits and CN's II-XI intact bilaterally Cranial nerves: Yes Equal, round and reactive pupils present Cognition (Neuro): normal cognition Gait exam (Neuro): Normal gait present Extrem General: Yes no clubbing, cyanosis or edema Coding Level of Care Code Est Pt Prev Care 40-64y(79320) Diagnoses Annual physical exam Z00.00 Pure hypercholesterolemia E78.00 Impaired fasting glucose R73.01 Elevated bilirubin R17 Vitamin D deficiency E55.9 Additional Codes PHQ-9 - 67054 - PHQ-9 Billing: Yes ([id number]) Assessment & Plan Assessment & Plan (1) Annual physical exam: Code(s): Z00.00 - Encounter for general adult medical examination without abnormal findings Category: Medical Plan: Check labs TIMA to complete his annual exam today He is up-to-date with his colon cancer screening - he will be due for repeat colonoscopy in 2028 (2) Pure hypercholesterolemia: Code(s): E78.00 - Pure hypercholesterolemia, unspecified Category: Medical Plan: Patient is advised that his LDL cholesterol level was still elevated on his labs done last year at 138 mg/dL, which is mostly unchanged from the year before Reinforced low-cholesterol diet Will recheck his fasting lipids TIMA for follow-up (3) Impaired fasting glucose: Code(s): R73.01 - Impaired fasting glucose Category: Medical Plan: Improved - his FBS was normal at 91 mg/dl when checked last year HgbA1c was also normal at 5.3% when checked at the time Reinforced low calorie/low carb diet (4) Elevated bilirubin: Code(s): R17 - Unspecified jaundice Category: Medical Plan: His total bilirubin level was elevated on his labs done last year Patient is currently asymptomatic with no acute GI symptoms Will recheck his LFTs for follow up Will also check his direct bilirubin level to help further evaluate for a potential cause for his elevated bilirubin level (5) Vitamin D deficiency: Code(s): E55.9 - Vitamin D deficiency, unspecified Category: Medical Plan: Corrected - his Vitamin D level was normal on his labs done last year Continue OTC Vitamin D supplements daily Plan To return in 1 year for his next annual physical examination Orders: Orders Complete Blood Count Auto Diff Today D64.9 - Anemia, unspecified, Z00.00 - Encounter for general adult medical examination without abnormal findings Comprehensive [place]. Panel Fast Today E78.00 - Pure hypercholesterolemia, unspecified, Z00.00 - Encounter for general adult medical examination without abnormal findings UA CC w/rflx Micro + Cult Today R30.0 - Dysuria, Z00.00 - Encounter for general adult medical examination without abnormal findings Hemoglobin A1c Today R73.01 - Impaired fasting glucose, Z00.00 - Encounter for general adult medical examination without abnormal findings Lipid Panel Today E78.00 - Pure hypercholesterolemia, unspecified, Z00.00 - Encounter for general adult medical examination without abnormal findings TSH reflex Free T4 Today E78.00 - Pure hypercholesterolemia, unspecified, Z00.00 - Encounter for general adult medical examination without abnormal findings Vitamin B12 and Folate Today E53.8 - Deficiency of other specified B group vitamins, Z00.00 - Encounter for general adult medical examination without abnormal findings Vitamin D 25-OH Total Today E55.9 - Vitamin D deficiency, unspecified, Z00.00 - Encounter for general adult medical examination without abnormal findings Prostate Specific Antigen Scr Today Z00.00 - Encounter for general adult medical examination without abnormal findings Bilirubin Direct Today R17 - Unspecified jaundice
== END 2025-06-26 17:50 | disposition home or self-care (01) ==
LOC: HO.HMCH 17:24
PROVIDERS: PCP Internal Medicine; Visit Provider Internal Medicine
DX: Z00.00 Encounter for general adult medical examination without abnormal findings (principal); E78.00 Pure hypercholesterolemia, unspecified; R73.01 Impaired fasting glucose; R17 Unspecified jaundice; E55.9 Vitamin D deficiency, unspecified

== ENCOUNTER → 2025-06-26 17:22 | Outpatient (BNVA) | payer OTHER, SELFPAY | PROVIDERS: PCP Internal Medicine; Visit Provider Internal Medicine | DX: Z00.00 Encounter for general adult medical examination without abnormal findings (principal); E78.00 Pure hypercholesterolemia, unspecified; E55.9 Vitamin D deficiency, unspecified; R73.01 Impaired fasting glucose; R17 Unspecified jaundice | CPT/HCPCS: 96127 ==

== ENCOUNTER 2025-07-24 06:12 | Outpatient (REF) | payer OTHER, SELFPAY ==
[2025-07-24 10:09] LABS: MANUAL DIFF FLAG NO
[2025-07-24 10:24] LABS: Hematocrit 47.7 % (42.0-52.0); Hemoglobin 16.0 g/dl (14.0-18.0); Imm Gran Abs Auto 0.04 X10*3/uL (0.00-0.03); Imm Gran Pct Auto 0.6 % (0.0-0.4); Lymphocytes Absolute Auto 1.6 X10*3/uL (1.2-4.9); Mean Corpuscular HGB Conc 33.5 g/dl (31.0-36.0); Mean Corpuscular Hemoglobin 28.7 pg (27.0-33.0); Mean Corpuscular Volume 85.6 fL (80.0-98.0); NRBC Abs Auto 0.000 X10*3/uL (0.0-0.012); NRBC Pct Auto 0.0 /100WBC (0.0-0.2); Platelet Count 270 X10*3/uL (160-400); Red Blood Count 5.57 X10*6/uL (4.60-5.80); White Blood Count 7.0 X10*3/uL (4.8-10.8)
[2025-07-24 10:30] LABS: Appearance Urine Clear; Glucose Urine UA Negative (Negative); PH 6.0 (5.0-9.0); Specific Gravity - Urine 1.015 (1.005-1.025)
[2025-07-24 11:29] LABS: Alanine Aminotransferase 24 U/L (0-40); Albumin Level 4.6 g/dL (3.5-5.0); Alkaline Phosphatase 70 U/L (39-117); Anion Gap 12 (12-20); Aspartate Amino Transferase 24 U/L (5-37); Blood Urea Nitrogen 15 mg/dL (9-16); Calcium 9.6 mg/dL (8.4-10.2); Carbon Dioxide 27 mmol/L (22-29); Chloride 105 mmol/L (96-108); Cholesterol 208 mg/dL (<200); Estimated Glomerular Filt Rate > 60; HDL Cholesterol 40 mg/dL (>40); Potassium 3.9 mmol/L (3.3-5.1); Sodium 140 mmol/L (135-145); Total Protein 6.9 g/dL (6.5-8.0); Triglycerides 95 mg/dL (<150)
[2025-07-24 12:07] LABS: Folate 16.9 ng/mL (> or = 4.0); Vitamin B12 579 pg/mL (200-900)
== END 2025-07-24 06:13 | disposition home or self-care (01) ==
LOC: HO.HMGCLDS 06:12
PROVIDERS: PCP Internal Medicine; Visit Provider Internal Medicine
DX: Z00.00 Encounter for general adult medical examination without abnormal findings (principal); Z12.5 Encounter for screening for malignant neoplasm of prostate; E78.00 Pure hypercholesterolemia, unspecified; E53.8 Deficiency of other specified B group vitamins; E55.9 Vitamin D deficiency, unspecified; D64.9 Anemia, unspecified; R30.0 Dysuria; R73.01 Impaired fasting glucose; R17 Unspecified jaundice
CPT/HCPCS: 36415; 80053; 80061; 81003; 82248; 82306; 82607; 82746; 83036; 84153; 84443; 85025